=== PATIENT | female | born 1970 | race Caucasian/White ===

== ENCOUNTER 2016-04-01 16:54 | Outpatient (CLI) | payer OTHER ==
[~2016-04-01 16:54] MED LIST: AMBIEN5 MG PO; CELEBREX50 MG PO; METOPROLOL SUCC25 MG PO; PERCOCET PO; PERCOCET1 TA1 PO; PRILOSEC40 MG PO; PROMETH PO; ROBAXIN500 M1 PO
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
== END 2016-04-01 23:00 ==
LOC: CT SRH 16:54
DX: M43.12 Spondylolisthesis, cervical region (principal); M50.323 Other cervical disc degeneration at C6-C7 level